=== PATIENT | female | born 1985 | race Hispanic/Latino ===

== ENCOUNTER 2020-01-09 23:27 | Inpatient (IN) | payer OTHER ==
[~2020-01-09] VITALS: Ht 160 cm; Wt 94.8 kg
--- NOTE | ~2020-01-09 | OR ---
[facility] [address], [place] [address] Draft DATE OF OPERATION: 01/10/2020 SURGEON: Jami Helms DO PREOPERATIVE DIAGNOSES: 1. Term . 2. Active labor. 3. History of prior delivery. POSTOPERATIVE DIAGNOSES: 1. Term . 2. Active labor. 3. History of prior delivery. 4. Fibroid uterus. PROCEDURE PERFORMED: Repeat low transverse delivery. ANESTHESIA: Spinal. VICE PRESIDENT [employer]: Edgar Petty MD. FINDINGS: Viable female weighing 6 pounds 13 ounces with Apgars of 7 and 8, delivered via repeat low transverse delivery. No nuchal cord. The patient was dilated to 9 cm at 100% effaced at the time of . Normal tubes and ovaries. The uterus shows multiple intramural pedunculated fibroids with a normal lower uterine segment. There was some dense scarring over her rectus sheath. ESTIMATED BLOOD LOSS: 700 mL. COMPLICATIONS: None. INDICATIONS: Ms. Murrieta is a very pleasant 34-year-old G3, P1-0-1-1, female with at 38 weeks gestation, who presented to Labor and Delivery with contractions increasing PATIENT NAME: JEOVANY MURRIETA OPERATIVE REPORT DATE OF : [birth year] REPORT #: [id number] PHYSICIAN: JAMI HELMS DO PCP: OTHER PCP REPORT IS CONFIDENTIAL AND NOT TO BE RELEASED WITHOUT AUTHORIZATION [facility] [address], [place] [address] Draft in frequency and intensity. complicated by history of prior delivery. The patient presents to the [facility] and was found to have advanced cervical dilation and ruptured membranes at 7 cm. Contractions continued to increase in frequency, intensity, and a stat delivery was called. We reviewed repeat low transverse delivery in detail including risks, benefits, and alternatives. The patient understands and wishes to proceed with the procedure. TECHNIQUE: The patient was taken to the operating room where a time-out was performed to confirm correct patient and correct procedure. Spinal anesthetic was adequately established and the patient was prepped and draped in the supine position with a bump under the right hip. Due to a penicillin allergy, the patient received clindamycin, gentamicin, and azithromycin for preoperative antibiotics. Just prior to , a sterile vaginal exam was performed that demonstrated 9 cm dilation and 100% effacement. Parker catheter was inserted and the spinal was confirmed to be adequate. A Pfannenstiel skin incision was made through the prior Pfannenstiel scar and carried down to the fascia in the midline. The fascia was nicked and fascial incision was extended bilaterally using curved Pisano scissors. Dense scarring of the fascia to the rectus sheath was noted. Deng's were placed on the fascia. The underlying rectus muscles were dissected off bluntly and sharply. The rectus muscles were then divided in the midline and the peritoneum was entered bluntly. Peritoneal incision was extended cephalad caudad using blunt and sharp dissection. The lower uterine segment was identified and noted to be normal. Jose Manuel self retractor was placed and hysterotomy was performed using a surgical scalpel. Clear fluid was noted. Hysterotomy was extended bilaterally using blunt dissection. The head was elevated into the maternal abdomen. No nuchal was identified. The was easily delivered with the assistance of fundal pressure and was vigorous and cried at delivery. Cord was doubly clamped and cut and the handed to waiting pediatric team for further care. Cord blood was obtained for routine analysis. The placenta was expressed intact with a centrally inserted three-vessel cord. The uterine cavity was cleared of any remaining products of conception or clot. Multiple fibroids were noted up to approximately 3 cm in diameter that appeared to be transmural and somewhat pedunculated. Normal tubes and ovaries bilaterally. The hysterotomy was repaired in two layers using 0 Vicryl in a running locked manner in the 1st layer and a running nonlocked manner in a vertical imbricating stitch in the 2nd layer. Good hemostasis was appreciated. The pelvis was irrigated and found to be hemostatic. Jose Manuel self retractor was removed and ACell sheet was applied to the lower uterine segment. Peritoneum was then reapproximated using 2-0 Vicryl in a running nonlocked manner. Rectus sheath was evaluated and made hemostatic with judicious use of Bovie electrocautery. The rectus was then plicated loosely with 0 Vicryl in three interrupted sutures. ACell powder was applied to the rectus sheath. Fascia was reapproximated using 0 Vicryl in a running nonlocked manner. Subcu was reapproximated using 2-0 Vicryl in a running nonlocked manner after ensuring hemostasis with Bovie PATIENT NAME: JEOVANY MURRIETA OPERATIVE REPORT DATE OF : [birth year] REPORT #: [id number] PHYSICIAN: JAMI HELMS DO PCP: OTHER PCP REPORT IS CONFIDENTIAL AND NOT TO BE RELEASED WITHOUT AUTHORIZATION [address] [address] Draft electrocautery and irrigation. Skin was then reapproximated using surgical rob. The uterus was Crede'd for scant amount of blood. The patient was taken the PACU in good and stable condition. Sponge, needle, and instrument count was correct x2 at the end of the procedure. Dr. Petty was present and participated in all portions of the procedure. Jami Helms DO JDW/MODL /[id number] Copies: ~ PATIENT NAME: JEOVANY MURRIETA OPERATIVE REPORT DATE OF : [birth year] REPORT #: [id number] PHYSICIAN: JAMI HELMS DO PCP: OTHER PCP REPORT IS CONFIDENTIAL AND NOT TO BE RELEASED WITHOUT AUTHORIZATION
--- NOTE | 2020-01-10 01:33 | NUR ---
01/10/20 0133 Po Vance A BABY TO BREAST WITH HELP OF [facility] GAVIN ABAD AT 0127. PT DENIES PAIN, NAUSEA, OR ITCHING.
--- NOTE | 2020-01-11 06:36 | PR ---
[facility] [address], [place] [address] Signed PP Progress Notes Datetime Report Generated by HARRIET: 01/11/2020 06:36 SUBJECTIVE: [id number] Pain: Within Normal Limits Nausea/Vomiting: Denies Flatus: Yes Bowel Movement: No Vital Signs: [id number] Vital Signs: Reviewed; Within Normal Limits Cardiovascular: Normal Respiratory: Normal Abdomen/Uterus: Normal Lochia: Normal Vulva/Perineum: Not Done Breasts: Not Done CVA Tenderness: Normal Extremities: Normal Incision: Normal Progress: Normal Exam Comments: Fundus firm U-1 nontender. Incision healing well w/ rob in place IMPRESSION/PLAN/PROCEDURES: [id number] Impression: Normal Progression Plan: Discharge Progress Notes: Pt seen and examined. Doing well. Ambulating, voiding, and tolerating full diet. Pain and lochia minimal. well. No fevers, chills, lightheadedness. No other questions or concerns. Desires d/c home today. Reviewed d/c instructions in detail. Plan staple removal in office early next week. Unsure of contraceptive plans but will discuss in office. Reviewed c/s and intraoperative findings. All questions answere Signing Physician: Jami Helms DO Copies: ~ *Electronically Signed* 01/11/20 0636 JAMI HELMS DO PATIENT NAME: JEOVANY SPARROW PROGRESS NOTE DATE OF : 87 PHYSICIAN: JAMI HELMS DO RPT #: [id number] REPORT IS CONFIDENTIAL AND NOT TO BE RELEASED WITHOUT AUTHORIZATION
== END 2020-01-11 10:49 | disposition home or self-care (01) | DRG 788 ==
LOC: FBCO 23:27 → FBC 23:58 → FBCO 01-20 09:11
PROVIDERS: ADMIT Obstetrics & Gynecology
PROC: 10D00Z1 Extraction of Products of Conception, Low, Open Approach (ICD-10-PCS; principal; 2020-01-10 00:30)
DX: O34.211 Maternal care for low transverse scar from previous cesarean delivery (principal); N85.8 Other specified noninflammatory disorders of uterus; Z3A.38 38 weeks gestation of pregnancy; Z37.0 Single live birth; O62.3 Precipitate labor; O32.2XX0 Maternal care for transverse and oblique lie, not applicable or unspecified; Z88.0 Allergy status to penicillin; Z88.2 Allergy status to sulfonamides; Z86.19 Personal history of other infectious and parasitic diseases
CPT/HCPCS: 01961; 36415; 85027; A9270; J1580; J1650; J1885; J3105; J3490; J7060; J7121

== ENCOUNTER 2022-07-28 00:09 | Inpatient (IN) | payer OTHER ==
[~2022-07-28] VITALS: Ht 160 cm; Wt 99.8 kg
--- NOTE | ~2022-07-28 | OR ---
[facility] [address], [place] [address] Draft DATE OF OPERATION: 07/28/2022 SURGEON: Jami Helms DO PREOPERATIVE DIAGNOSES: 1. Term in labor. 2. History of prior . 3. Obesity. 4. Fibroid uterus. POSTOPERATIVE DIAGNOSES: 1. Term in labor. 2. History of prior . 3. Obesity. 4. Fibroid uterus. PROCEDURE PERFORMED: Repeat low transverse delivery. ANESTHESIA: Spinal. PARTS FACILITATOR: Heavenly Haney MD ESTIMATED BLOOD LOSS: 500 mL. COMPLICATIONS: None. FINDINGS: Delivery of a viable female in the LOT position via Pfannenstiel incision. Apgars 8 and 9 and weight 7 pounds 8 ounces. Thick meconium fluid with lower uterine segment that is quite thin. There were multiple small fibroids max diameter approximately 3 cm. Normal fallopian tubes and ovaries bilaterally. DRAINS: Parker to gravity. PATIENT NAME: JEOVANY MURRIETA OPERATIVE REPORT DATE OF : [birth year] REPORT #: [id number] PHYSICIAN: JAMI HELMS (GIO CERVANTES PCP: NO PRIMARY CARE PHYSICIAN REPORT IS CONFIDENTIAL AND NOT TO BE RELEASED WITHOUT AUTHORIZATION [facility] [address] [place] [id number] Draft INDICATIONS: Ms. Murrieta is a very pleasant 37-year-old G4, P2, with IUP at 37 weeks five days gestation, presents to Labor and Delivery complaining of contractions increasing in frequency and intensity. Spontaneous rupture of meconium stained fluid in triage. The patient was consented for repeat low transverse delivery and risks, benefits, and alternatives were discussed in detail. The patient understands and wishes to proceed with the procedure. TECHNIQUE: The patient was taken to the operating room where time-out was performed to confirm correct patient and correct procedure. Spinal anesthesia was adequately established. The patient was then prepped and draped in the supine position with a bump under the right hip and allowing adequate trying of surgical prep. Parker catheter was inserted. Once spinal was noted to be adequate, a Pfannenstiel incision was made through the prior scar and carried down to the fascia. The fascia was nicked in the midline. Fascial incision was extended bilaterally using curved Pisano scissors. The rectus was dissected from the fascia using sharp and blunt dissection. The rectus was then divided in the midline. The peritoneum was entered sharply. Peritoneal incision was extended cephalad caudad using blunt and sharp dissection. Survey of the abdomen and pelvis was performed that demonstrated a gravid uterus with a thin appearing lower uterine segment and multiple small fibroids, but none in the lower uterine segment. An Jose Manuel self-retractor was placed and hysterotomy was performed using a surgical scalpel. The uterine segment was confirmed to be quite thin. Hysterotomy was then extended bilaterally using blunt dissection and thick meconium was noted. The surgeon's hand was placed in the uterine cavity and the head elevated in the LOT position and delivered with the assistance of fundal pressure. No nuchal cord. The was vigorous and cried at delivery. The cord was doubly clamped and cut and the handed to the waiting pediatric team for further care. Cord blood was obtained for routine analysis. Placenta was then expressed intact with a centrally inserted three-vessel cord. Bleeding was noted to be fairly scant and Pitocin was given per protocol. The uterine cavity was cleared of any remaining products of conception or clot. The hysterotomy was then repaired in two layers using 0 Monocryl, the 1st being a running locked layer and the 2nd being an imbricating layer in the vertical manner. Some oozing was noted and this was then made hemostatic with [id number] sutures of 0 Monocryl. The pelvis was irrigated and found to be hemostatic. Normal tubes and ovaries were identified. The pelvis was again noted to be hemostatic and the Jose Manuel self-retractor was removed. The peritoneum was reapproximated using 3-0 Vicryl in a running nonlocked manner. Rectus was irrigated and made hemostatic with judicious use of Bovie electrocautery. Rectus was then plicated in the midline using 0 Vicryl in interrupted loose sutures. Once hemostasis was appreciated, the fascia was then reapproximated using 0 Vicryl in a running nonlocked manner. The subcutaneous space was made hemostatic with Bovie electrocautery and closed in layers with 3-0 Vicryl. Skin PATIENT NAME: JEOVANY MURRIETA OPERATIVE REPORT DATE OF : 87 REPORT #: [id number] PHYSICIAN: JAMI HELMS (ZAIN) DO PCP: NO PRIMARY CARE PHYSICIAN REPORT IS CONFIDENTIAL AND NOT TO BE RELEASED WITHOUT AUTHORIZATION [facility] [address] [place] [address] [place] [address] Draft was then reapproximated using surgical rob. The uterus was Crede'd for scant amount of blood and the patient was taken to the PACU in good and stable condition. Sponge, needle, and instrument count was correct x2 at the end of the procedure. The patient did receive Ancef 2 g preoperatively as well as azithromycin [address] Haney was present and participated in all portions of the procedure. DO SAMY Ontiveros/MODL /[id number] Copies: ~ PATIENT NAME: JEOVANY MURRIETA DANIAL OPERATIVE REPORT DATE OF : 87 REPORT #: [id number] PHYSICIAN: JAMI HELMS DO (JD) PCP: NO PRIMARY CARE PHYSICIAN REPORT IS CONFIDENTIAL AND NOT TO BE RELEASED WITHOUT AUTHORIZATION
--- NOTE | 2022-07-28 04:18 | NUR ---
07/28/22 0418 Helms,Sue Delacruz 0328: PATIENT ARRIVED TO RECOVERY IN ROOM 104 ON ROOM AIR. DENIES PAIN AND NAUSEA. 0342: [facility] RN ASSISTING PATIENT TO BREASTFEED. 0404: REPORT GIVEN TO [facility] RN.
--- NOTE | 2022-07-29 07:34 | PR ---
[facility] [address] [facility] [place], [place] [address] Signed PP Progress Notes Datetime Report Generated by CPN: 07/29/2022 07:34 SUBJECTIVE: [id number] Pain: Within Normal Limits Nausea/Vomiting: Denies Flatus: Yes Vital Signs: [id number] EXAM: Ongoing Abdomen/Uterus: Normal Lochia: Normal Extremities: Normal Progress: Normal Exam Comments: Incision covered by dressing. Dressing is C/D/I with not bleeding noted through the dressing. and supplementing with formula when needed. IMPRESSION/PLAN/PROCEDURES: [id number] Impression: Normal Progression Plan: Continue Present Management Procedures: None Progress Notes: 37 yo s/p RLTCS. POD/PPD # 1. Doing well. Denies ARRINGTON, CP, SOB, F/C, N/V, RUQ pain, changes in vision. Normal vaginal bleeding. Tolerating regular diet, ambulating, singh removed approximately 1.5 hours ago. Has not yet voided. Pain controlled. O: AFVSS Fundus firm, below umbilicus A/P: Patient well. Will continue to monitor postop/ progress. Likely discharge home tomorrow AM. Signing Physician: Viktor Pennington MD Copies: ~ *Electronically Signed* 07/29/22 0734 VIKTOR PENNINGTON MD PATIENT NAME: JEOVANY SPARROW PROGRESS NOTE DATE OF : 87 PHYSICIAN: VIKTOR PNENINGTON MD RPT #: [id number] REPORT IS CONFIDENTIAL AND NOT TO BE RELEASED WITHOUT AUTHORIZATION
--- NOTE | 2022-07-30 07:40 | PR ---
[facility] [address], [place] [address] Signed PP Progress Notes Datetime Report Generated by HARRIET: 07/30/2022 07:40 SUBJECTIVE: [id number] Pain: Within Normal Limits Nausea/Vomiting: Denies Flatus: Yes Bowel Movement: Yes Vital Signs: [id number] Vital Signs: Reviewed; Within Normal Limits EXAM: Ongoing Abdomen/Uterus: Normal Lochia: Normal Extremities: Normal Incision: Normal Progress: Normal Exam Comments: Incision covered by dressing. Dressing is C/D/I with not bleeding noted through the dressing. and supplementing with formula when needed. IMPRESSION/PLAN/PROCEDURES: [id number] Impression: Normal Progression Plan: Remove Sherlyn; Discharge Procedures: None Progress Notes: S: Doing well. No overnight complaints. Denies ARRINGTON, CP, SOB, F/C, N/V, RUQ pain, changes in vision, vaginal discharge. Ambulating, tolerating diet, pain controlled, voiding on her own. O: AFVSS Abdomen: Uterus firm. Incision C/D/I. [place] in place. No erythema or discharge. Musc: Moving all extremeties. A/P: Patient well. Meeting all hospital milestones. Will discharge home today. Signing Physician: Jessa Panchal MD Copies: ~ *Electronically Signed* 07/30/22 0740 JESSA PANCHAL MD PATIENT NAME: JEOVANY SPARROW PROGRESS NOTE DATE OF : 87 PHYSICIAN: JESSA PANCHAL MD RPT #: [id number] REPORT IS CONFIDENTIAL AND NOT TO BE RELEASED WITHOUT AUTHORIZATION
== END 2022-07-30 13:30 | disposition home or self-care (01) | DRG 788 ==
LOC: FBCO 00:09 → FBC 01:16
PROVIDERS: ADMIT Obstetrics & Gynecology; ATTEND Obstetrics & Gynecology
PROC: 10D00Z1 Extraction of Products of Conception, Low, Open Approach (ICD-10-PCS; principal; 2022-07-28 02:28)
DX: O34.211 Maternal care for low transverse scar from previous cesarean delivery (principal); O99.214 Obesity complicating childbirth; D25.9 Leiomyoma of uterus, unspecified; Z3A.37 37 weeks gestation of pregnancy; Z37.0 Single live birth; Z20.822 Contact with and (suspected) exposure to COVID-19; Z67.40 Type O blood, Rh positive
CPT/HCPCS: 01961; 36415; 59025; 85027; 86850; 86900; 86901; 87491; 87502; A9270; G0463; J0456; J0690; J1100; J1650; J1885; J2274; J2370; J2405; J2590; U0003